=== PATIENT | female | born 1950 | race Caucasian/White ===

== ENCOUNTER 2020-07-26 17:57 | Outpatient (CLI) | payer MEDICARE | END 2020-07-26 17:58 | disposition critical access hospital (66) | LOC: EMS 17:57 | PROVIDERS: ATTEND Surgery | DX: S09.90XA Unspecified injury of head, initial encounter (principal); S61.216A Laceration without foreign body of right little finger without damage to nail, initial encounter; V48.0XXA Car driver injured in noncollision transport accident in nontraffic accident, initial encounter; Y92.008 Other place in unspecified non-institutional (private) residence as the place of occurrence of the external cause | CPT/HCPCS: A0425; A0429 ==

== ENCOUNTER 2020-07-26 18:17 | Emergency (ER) | payer MEDICARE, OTHER ==
[2020-07-26] MEDS ORDERED: LIDOCAINE-EPINEPH-TETRACAINE 3 ML SYRINGE TOP STA (18:27)
[2020-07-26] MEDS ORDERED: CEPHALEXIN 250 MG Prepack 8 CAP BOTTLE PO STA (18:27)
[2020-07-26] MEDS ORDERED: TETANUS/DIPHTHERIA/PERTUSSIS 0.5 ML SYRINGE IM ONE (18:27)
[2020-07-26] MEDS ORDERED: BUFFERED LIDOCAINE 10 ML SYRINGE SUBQ STA (18:27)
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
[2020-07-26] MEDS ORDERED: oxyCODONE 5 MG TABLET PO STA (19:03)
--- NOTE | 2020-07-26 19:22 | XRAY Report ---
PROCEDURE: Hand 3 View RT INDICATIONS: hand inj TECHNIQUE: 3 views of the hand(s) acquired. COMPARISON: None FINDINGS: Bones: There is a mildly displaced comminuted fracture at the base of the proximal fifth phalanx. No intra-articular extension. No suspicious bony lesions. Soft tissues: No suspicious soft tissue calcifications. IMPRESSION: Mildly displaced fifth proximal phalanx fracture. Reviewed by: Malena Abdul MD on 07/26/2020 7:21 PM PDT Approved by: Malena Abdul MD on 07/26/2020 7:21 PM PDT Station ID: [id number]
[2020-07-26 19:45] VITALS: BP 143/93
== END 2020-07-26 19:46 | disposition home or self-care (01) ==
LOC: EDUNIT# → ED 18:17
DX: S62.616B Displaced fracture of proximal phalanx of right little finger, initial encounter for open fracture (principal); V49.3XXA Car occupant (driver) (passenger) injured in unspecified nontraffic accident, initial encounter; I10 Essential (primary) hypertension; E03.9 Hypothyroidism, unspecified; E78.00 Pure hypercholesterolemia, unspecified; F17.200 Nicotine dependence, unspecified, uncomplicated; Z23 Encounter for immunization
CPT/HCPCS: 12041; 29125; 73130; 90471; 90715; 99283; A9270

== ENCOUNTER 2020-08-01 07:27 | Outpatient (CLI) | payer MEDICARE ==
--- NOTE | 2020-08-01 09:15 | XRAY Report ---
PROCEDURE: Hand 3 View RT INDICATIONS: RIGHT PINKY FINGER FRACTURE TECHNIQUE: 4 views of the hand(s) acquired. COMPARISON: Similar prior study from 07/26/2020 reviewed FINDINGS: Bones: No previously unidentified fractures or dislocations. No suspicious bony lesions. The prior fracture malalignment at the base of the fifth proximal phalanx is unchanged from 6 days ago. Soft tissues: No suspicious soft tissue calcifications. IMPRESSION: No definite change from 6 days ago. Early fracture healing would not be identified over this short pe riod of time. The degree of fracture malalignment is unchanged. Old ulnar styloid base fracture again noted. Reviewed by: Yusuf Urban MD on 08/01/2020 9:14 AM PDT Approved by: Yusuf Urban MD on 08/01/2020 9:14 AM PDT Station ID: [id number]
== END 2020-08-01 07:28 | disposition home or self-care (01) ==
LOC: DI.WCP 07:27
PROVIDERS: ATTEND Physician Assistant
DX: S62.616B Displaced fracture of proximal phalanx of right little finger, initial encounter for open fracture (principal)

== ENCOUNTER 2022-09-21 11:23 | Outpatient (CLI) | payer MEDICARE ==
--- NOTE | 2022-09-29 12:03 | Mammography Report ---
BILATERAL DIGITAL SCREENING MAMMOGRAM 3D/2D: 09/21/2022 CLINICAL: Routine screening. Comparison is made to exam dated: 02/05/2009 mammogram - [facility]. Both breasts are almost entirely fatty (category a/<25% glandular tissue). No significant masses, calcifications, or other findings are seen in either breast. There has been no significant interval change. IMPRESSION: NEGATIVE There is no mammographic evidence of malignancy. A 1 year screening mammogram is recommended. Based on the Tyrer Cuzick model (a risk assessment model) the patients lifetime risk is 2.0% and her 10 year risk is 1.5%. According to the ACR, ACS, and NCCN guidelines, an annual breast MRI exam cristina g with mammogram is recommended if the patients lifetime risk is 20% or greater. This exam was interpreted at Station ID: [id number]. NOTE: For mammograms, a report in lay terms will be sent to the patient. Approximately 15% of breast malignancies will not be visualized mammographically. In the management of a palpable breast mass, a negative mammogram must not discourage biopsy of a clinically suspicious lesion. Electronically Signed By: Himanshu cano/ashia:09/29/2022 08:26:40 ACR BI-RADS Category 1: Negative 3341F PARENCHYMAL PATTERN: (F) - The breast(s) demonstrate(s) diffuse fatty replacement. BI-RADS CATEGORY: (1) - 1 RECOMMENDATION: (ANNUAL) - Recommend routine annual screening mammography. [id number] 1 year screening LATERALITY: (B)
== END 2022-09-21 11:24 | disposition home or self-care (01) ==
LOC: DI.N 11:23
PROVIDERS: ATTEND Family Medicine
DX: Z12.31 Encounter for screening mammogram for malignant neoplasm of breast (principal)